=== PATIENT | male | born 1985 | race African-American/Black ===

== ENCOUNTER 2017-07-29 02:04 | Inpatient (IN) | payer MEDICAID ==
[~2017-07-29] VITALS: Ht 175.3 cm; Wt 113.9 kg
[~2017-07-29 02:04] MED LIST: DIVA500T35 PO; RISP3 PO
[2017-07-29 02:41] LABS: BASOPHILS % (AUTO) 0.1 % (0.0-2.0); EOSINOPHILS % (AUTO) 2.8 % (1.0-6.0); HEMATOCRIT 40.1 % (41-53); HEMOGLOBIN 13.5 g/dL (13.5-17.5); LYMPHOCYTES # (AUTO) 1.9 K/uL (1.0-4.8); LYMPHOCYTES % (AUTO) 16.6 % (22.0-44.0); MEAN CORPUSCULAR HEMOGLOBIN 28.6 pg (26.0-34.0); MEAN CORPUSCULAR HGB CONC 33.6 G/dL (31.0-37.0); MEAN CORPUSCULAR VOLUME 85 fL (80-100); MONOCYTES # (AUTO) 0.9 K/uL (0.1-1.0); MONOCYTES % (AUTO) 8.1 % (2.0-9.0); NEUTROPHILS # (AUTO) 8.3 K/uL (1.8-7.7); NEUTROPHILS % (AUTO) 72.4 % (40.0-70.0); PLATELET COUNT (AUTO) 228 K/uL (150-450); RED BLOOD CELL COUNT(AUTO) 4.71 MIL/uL (4.50-5.90); RED CELL DISTRIBUTION WIDTH 14.5 % (11.5-14.5); WHITE BLOOD COUNT (AUTO) 11.4 K/uL (4.5-11.0)
[2017-07-29 02:47] LABS: ANION GAP 8 mmol/L (8-16); CALCIUM, TOTAL 8.9 mg/dL (8.8-10.5); CARBON DIOXIDE 27 mmol/L (22-29); CHLORIDE 104 mmol/L (98-107); CREATININE 1.06 mg/dL (0.60-1.30); GLOMERULAR FILTR. RATE CALC > 60 mL/min (>60); POTASSIUM 3.6 mmol/L (3.5-5.1); SODIUM SERUM 139 mmol/L (136-145); UREA NITROGEN, BLOOD 11 mg/dL (7-18)
[2017-07-29 02:54] LABS: ALANINE AMINOTRANSFERASE 78 U/L (12-78); ALBUMIN 3.7 g/dL (3.4-5.0); ASPARTATE AMINOTRANSFERASE 45 U/L (15-37); BILIRUBIN,TOTAL 0.3 mg/dL (0.1-1.0); TOTAL PROTEIN, SERUM 7.6 g/dL (6.4-8.2)
[2017-07-29] MEDS ORDERED: HALOPERIDOL LACTATE 5 MG/ML VIAL IM ONE (03:00)
[2017-07-29] MEDS ORDERED: LORazepam 2 MG/ML VIAL IM ONE (03:00)
[2017-07-29] MEDS ORDERED: DiphenhydrAMINE HCL 50 MG/ML VIAL IM ONE (03:00)
[2017-07-29 03:07] LABS: VALPROIC ACID < 3 mcg/mL (50-100)
[2017-07-29 08:00] LABS: APPEARANCE,URINE CLEAR (CLEAR); GLUCOSE, URINE (UA) NEGATIVE (NEGATIVE); KETONES,URINE TRACE mg/dL (NEGATIVE); LEUKOCYTE ESTERASE ,URINE NEGATIVE (NEGATIVE); OCCULT BLOOD,URINE NEGATIVE (NEGATIVE); PH,URINE 6.5 (5.0-8.0); PROTEIN,URINE NEGATIVE (NEGATIVE)
[2017-07-29 08:01] LABS: ADD UA MICROSCOPIC NO
[2017-07-29] MEDS: HALOPERIDOL 5 MG TABLET PO PRN ×2 (08:38→17:33)
[2017-07-29] MEDS: LORazepam 2 MG TABLET PO PRN ×2 (08:38→17:33)
[2017-07-29 11:49] VITALS: BP 121/61
[2017-07-29] MEDS: RisperiDONE 2 MG TABLET PO SCH (21:56)
[2017-07-30 06:45] LABS: CHOL/HDL RATIO 4.8 (4.2-7.3)
[2017-07-30] MEDS: LORazepam 2 MG TABLET PO PRN ×2 (07:32→22:29)
[2017-07-30] MEDS: HALOPERIDOL 5 MG TABLET PO PRN (07:32)
[2017-07-30] MEDS: RisperiDONE 2 MG TABLET PO SCH (08:05)
[2017-07-30] MEDS ORDERED: LORazepam 2 MG/ML VIAL IM ONE ×2 (08:20→19:15)
[2017-07-30] MEDS ORDERED: HALOPERIDOL LACTATE 5 MG/ML VIAL IM ONE ×2 (08:20→19:15)
[2017-07-30] MEDS ORDERED: DiphenhydrAMINE HCL 50 MG/ML VIAL IM ONE ×2 (08:20→19:15)
[2017-07-30] MEDS: QUEtiapine FUMARATE 200 MG TABLET PO SCH ×2 (10:57→21:12)
[2017-07-30] MEDS: VALPROIC ACID 250 MG/5 ML SYRUP UDCUP PO SCH ×2 (10:57→21:12)
[2017-07-30] MEDS: NICOTINE 21 MG/24 HOUR PATCH TD SCH (10:58)
[2017-07-30] MEDS: GuaiFENesin/D-METHORPHAN [SUGAR-FREE] 200-20MG/10 ML SYRUP UDCUP PO PRN (13:22)
[2017-07-30] MEDS: ALBUTEROL SULFATE HFA 90 MCG/PUFF 8 GM INHALER IH PRN (13:23)
[2017-07-30 20:01] VITALS: BP 137/61
[2017-07-30] MEDS: ZOLPIDEM TARTRATE 10 MG TABLET PO PRN (22:29)
[2017-07-31] MEDS: HALOPERIDOL 5 MG TABLET PO PRN ×2 (08:00→16:30)
[2017-07-31] MEDS: LORazepam 2 MG TABLET PO PRN ×2 (08:00→16:30)
[2017-07-31] MEDS: CITALOPRAM HYDROBROMIDE 20 MG TABLET PO SCH (08:06)
[2017-07-31] MEDS: NICOTINE 21 MG/24 HOUR PATCH TD SCH (08:06)
[2017-07-31] MEDS: VALPROIC ACID 250 MG/5 ML SYRUP UDCUP PO SCH ×2 (08:06→21:39)
[2017-07-31] MEDS: QUEtiapine FUMARATE 200 MG TABLET PO SCH ×2 (08:06→21:39)
[2017-07-31 08:07] VITALS: BP 128/71
[2017-07-31] MEDS: GuaiFENesin/D-METHORPHAN [SUGAR-FREE] 200-20MG/10 ML SYRUP UDCUP PO PRN (08:12)
[2017-07-31] MEDS: ALBUTEROL SULFATE HFA 90 MCG/PUFF 8 GM INHALER IH PRN (08:13)
[2017-07-31 16:45] VITALS: BP 124/89
[2017-08-01] MEDS: LORazepam 2 MG TABLET PO PRN ×2 (01:19→23:38)
[2017-08-01] MEDS: ZOLPIDEM TARTRATE 10 MG TABLET PO PRN ×2 (01:19→23:38)
[2017-08-01 02:33] VITALS: BP 127/68
[2017-08-01] MEDS: QUEtiapine FUMARATE 200 MG TABLET PO SCH ×2 (08:30→20:16)
[2017-08-01] MEDS: CITALOPRAM HYDROBROMIDE 20 MG TABLET PO SCH (08:30)
[2017-08-01] MEDS: NICOTINE 21 MG/24 HOUR PATCH TD SCH (08:30)
[2017-08-01] MEDS: VALPROIC ACID 250 MG/5 ML SYRUP UDCUP PO SCH ×2 (08:31→20:16)
[2017-08-01 09:37] VITALS: BP 122/73
[2017-08-01 16:30] VITALS: BP 128/72
[2017-08-01] MEDS ORDERED: MAGNESIUM HYDROXIDE SUSPENSION 30 ML UDCUP PO PRN (18:15)
[2017-08-01] MEDS ORDERED: BENZOCAINE/MENTHOL LOZENGE [8 LOZENGES/PACKET] MM PRN (18:15)
[2017-08-01] MEDS ORDERED: BACITRACIN 28.4 GM OINTMENT TP PRN (18:15)
[2017-08-01] MEDS ORDERED: ONDANSETRON HCL 4 MG TABLET PO PRN (18:15)
[2017-08-01] MEDS ORDERED: LOPERAMIDE HCL 2 MG CAPSULE PO PRN (18:15)
[2017-08-01] MEDS ORDERED: ACETAMINOPHEN 325 MG TABLET PO PRN (18:15)
[2017-08-01] MEDS ORDERED: IBUPROFEN 600 MG TABLET PO PRN (18:15)
[2017-08-01] MEDS ORDERED: CloNIDine HCL 0.1 MG TABLET PO PRN (18:15)
[2017-08-01] MEDS ORDERED: MAG HYDROX/AL HYDROX/SIMETH ES 30 ML SUSPENSION UDCUP PO PRN (18:15)
[2017-08-01] MEDS ORDERED: PETROLATUM,WHITE 71 GM JELLY TP PRN (18:15)
[2017-08-02 02:11] VITALS: BP 133/85
[2017-08-02 08:29] VITALS: BP 145/93
[2017-08-02] MEDS: CITALOPRAM HYDROBROMIDE 20 MG TABLET PO SCH (08:45)
[2017-08-02] MEDS: OMEPRAZOLE 20 MG CAPSULE PO SCH (08:45)
[2017-08-02] MEDS: VALPROIC ACID 250 MG/5 ML SYRUP UDCUP PO SCH ×2 (08:45→21:20)
[2017-08-02] MEDS: QUEtiapine FUMARATE 200 MG TABLET PO SCH (08:45)
[2017-08-02] MEDS: NICOTINE 21 MG/24 HOUR PATCH TD SCH (08:49)
[2017-08-02] MEDS: HALOPERIDOL 5 MG TABLET PO PRN ×2 (10:38→16:24)
[2017-08-02] MEDS: LORazepam 2 MG TABLET PO PRN ×2 (10:38→16:24)
[2017-08-02] MEDS: ZOLPIDEM TARTRATE 10 MG TABLET PO PRN (21:20)
[2017-08-02] MEDS: QUEtiapine FUMARATE 300 MG TABLET PO SCH (21:21)
[2017-08-02 22:04] VITALS: BP 135/90
[2017-08-03 06:36] LABS: HEMATOCRIT 46.5 % (41-53); HEMOGLOBIN 15.2 g/dL (13.5-17.5); MEAN CORPUSCULAR HEMOGLOBIN 28.4 pg (26.0-34.0); MEAN CORPUSCULAR HGB CONC 32.7 G/dL (31.0-37.0); MEAN CORPUSCULAR VOLUME 87 fL (80-100); PLATELET COUNT (AUTO) 261 K/uL (150-450); RED BLOOD CELL COUNT(AUTO) 5.36 MIL/uL (4.50-5.90); RED CELL DISTRIBUTION WIDTH 14.1 % (11.5-14.5); WHITE BLOOD COUNT (AUTO) 9.1 K/uL (4.5-11.0)
[2017-08-03 07:03] LABS: ANION GAP 7 mmol/L (8-16); CARBON DIOXIDE 33 mmol/L (22-29); CHLORIDE 101 mmol/L (98-107); CREATININE 0.95 mg/dL (0.60-1.30); POTASSIUM 4.3 mmol/L (3.5-5.1); SODIUM SERUM 141 mmol/L (136-145); UREA NITROGEN, BLOOD 12 mg/dL (7-18)
[2017-08-03 07:04] LABS: CALCIUM, TOTAL 9.3 mg/dL (8.8-10.5); GLOMERULAR FILTR. RATE CALC > 60 mL/min (>60); PHOSPHORUS 3.9 mg/dL (2.5-4.9)
[2017-08-03 07:57] LABS: BAND NEUTROPHILS % (MANUAL) 5 % (1-5); LYMPHOCYTES % (MANUAL) 33 % (22-44); RBC MORPHOLOGY COMMENT NORMAL RBC MORPH; TOTAL CELLS COUNTED 100
[2017-08-03 08:21] VITALS: BP 145/83
[2017-08-03] MEDS: DOCUSATE SODIUM 100 MG CAPSULE PO PRN (08:41)
[2017-08-03] MEDS: CITALOPRAM HYDROBROMIDE 20 MG TABLET PO SCH (08:41)
[2017-08-03] MEDS: QUEtiapine FUMARATE 300 MG TABLET PO SCH ×2 (08:41→21:10)
[2017-08-03] MEDS: OMEPRAZOLE 20 MG CAPSULE PO SCH (08:41)
[2017-08-03] MEDS: VALPROIC ACID 250 MG/5 ML SYRUP UDCUP PO SCH ×2 (08:42→21:10)
[2017-08-03] MEDS: NICOTINE 21 MG/24 HOUR PATCH TD SCH (09:00)
[2017-08-03] MEDS: LORazepam 2 MG TABLET PO PRN (14:30)
[2017-08-03] MEDS: HALOPERIDOL 5 MG TABLET PO PRN (14:32)
[2017-08-03 16:35] VITALS: BP 126/75
[2017-08-04] MEDS: VALPROIC ACID 250 MG/5 ML SYRUP UDCUP PO SCH ×2 (08:09→20:59)
[2017-08-04] MEDS: QUEtiapine FUMARATE 300 MG TABLET PO SCH ×2 (08:09→20:59)
[2017-08-04] MEDS: OMEPRAZOLE 20 MG CAPSULE PO SCH (08:09)
[2017-08-04] MEDS: CITALOPRAM HYDROBROMIDE 20 MG TABLET PO SCH (08:09)
[2017-08-04] MEDS: NICOTINE 21 MG/24 HOUR PATCH TD SCH (08:12)
[2017-08-04 08:20] VITALS: BP 134/62
[2017-08-04] MEDS: LORazepam 2 MG TABLET PO PRN (14:53)
[2017-08-04] MEDS: HALOPERIDOL 5 MG TABLET PO PRN (14:53)
[2017-08-04 16:52] VITALS: BP 132/83
[2017-08-04] MEDS: ZOLPIDEM TARTRATE 10 MG TABLET PO PRN (20:59)
[2017-08-05 08:17] VITALS: BP 137/89
[2017-08-05] MEDS: LORazepam 2 MG TABLET PO PRN (08:39)
[2017-08-05] MEDS: QUEtiapine FUMARATE 300 MG TABLET PO SCH ×2 (08:40→20:29)
[2017-08-05] MEDS: OMEPRAZOLE 20 MG CAPSULE PO SCH (08:40)
[2017-08-05] MEDS: VALPROIC ACID 250 MG/5 ML SYRUP UDCUP PO SCH ×2 (08:41→20:29)
[2017-08-05] MEDS: CITALOPRAM HYDROBROMIDE 20 MG TABLET PO SCH (08:41)
[2017-08-05] MEDS: NICOTINE 21 MG/24 HOUR PATCH TD SCH (08:48)
[2017-08-05 17:31] VITALS: BP 136/84
[2017-08-06 05:29] VITALS: BP 112/65
[2017-08-06] MEDS: NICOTINE 21 MG/24 HOUR PATCH TD SCH (08:16)
[2017-08-06] MEDS: OMEPRAZOLE 20 MG CAPSULE PO SCH (08:17)
[2017-08-06] MEDS: CITALOPRAM HYDROBROMIDE 20 MG TABLET PO SCH (08:17)
[2017-08-06] MEDS: QUEtiapine FUMARATE 300 MG TABLET PO SCH ×2 (08:17→20:34)
[2017-08-06] MEDS: VALPROIC ACID 250 MG/5 ML SYRUP UDCUP PO SCH ×2 (08:18→20:34)
[2017-08-06] MEDS: ALBUTEROL SULFATE HFA 90 MCG/PUFF 8 GM INHALER IH PRN (08:21)
[2017-08-06 08:38] VITALS: BP 126/86
[2017-08-06 16:42] VITALS: BP 120/68
[2017-08-07 03:14] VITALS: BP 131/65
[2017-08-07] MEDS: OMEPRAZOLE 20 MG CAPSULE PO SCH (08:23)
[2017-08-07] MEDS: LORazepam 2 MG TABLET PO PRN ×2 (08:23→16:54)
[2017-08-07] MEDS: NICOTINE 21 MG/24 HOUR PATCH TD SCH (08:23)
[2017-08-07] MEDS: CITALOPRAM HYDROBROMIDE 20 MG TABLET PO SCH (08:23)
[2017-08-07] MEDS: HALOPERIDOL 5 MG TABLET PO PRN ×2 (08:23→16:54)
[2017-08-07] MEDS: QUEtiapine FUMARATE 300 MG TABLET PO SCH ×2 (08:23→22:43)
[2017-08-07] MEDS: ALBUTEROL SULFATE HFA 90 MCG/PUFF 8 GM INHALER IH PRN (08:23)
[2017-08-07] MEDS: VALPROIC ACID 250 MG/5 ML SYRUP UDCUP PO SCH (08:24)
[2017-08-07 08:26] VITALS: BP 118/70
[2017-08-07 16:36] VITALS: BP 122/72
[2017-08-07] MEDS: DIVALPROEX SODIUM 500 MG DR TABLET PO SCH (22:43)
[2017-08-08 08:18] VITALS: BP 127/66
[2017-08-08] MEDS: CITALOPRAM HYDROBROMIDE 20 MG TABLET PO SCH (08:20)
[2017-08-08] MEDS: NICOTINE 21 MG/24 HOUR PATCH TD SCH (08:20)
[2017-08-08] MEDS: QUEtiapine FUMARATE 300 MG TABLET PO SCH ×2 (08:20→21:22)
[2017-08-08] MEDS: DIVALPROEX SODIUM 500 MG DR TABLET PO SCH ×2 (08:20→21:22)
[2017-08-08] MEDS: OMEPRAZOLE 20 MG CAPSULE PO SCH (08:20)
[2017-08-08 16:21] VITALS: BP 121/68
[2017-08-09 00:15] VITALS: BP 129/69
[2017-08-09] MEDS: HALOPERIDOL 5 MG TABLET PO PRN ×3 (00:17→17:56)
[2017-08-09] MEDS: ZOLPIDEM TARTRATE 10 MG TABLET PO PRN (00:17)
[2017-08-09] MEDS: CITALOPRAM HYDROBROMIDE 20 MG TABLET PO SCH (08:15)
[2017-08-09] MEDS: OMEPRAZOLE 20 MG CAPSULE PO SCH (08:15)
[2017-08-09] MEDS: DIVALPROEX SODIUM 500 MG DR TABLET PO SCH ×2 (08:15→20:06)
[2017-08-09] MEDS: QUEtiapine FUMARATE 300 MG TABLET PO SCH (08:15)
[2017-08-09 08:27] VITALS: BP 124/72
[2017-08-09] MEDS: NICOTINE 21 MG/24 HOUR PATCH TD SCH (09:00)
[2017-08-09] MEDS: LORazepam 2 MG TABLET PO PRN ×2 (11:00→17:56)
[2017-08-09 16:30] VITALS: BP 137/78
[2017-08-09] MEDS: QUEtiapine FUMARATE 200 MG TABLET PO SCH (20:06)
[2017-08-10] MEDS: DIVALPROEX SODIUM 500 MG DR TABLET PO SCH ×2 (09:26→20:13)
[2017-08-10] MEDS: CITALOPRAM HYDROBROMIDE 20 MG TABLET PO SCH (09:27)
[2017-08-10] MEDS: QUEtiapine FUMARATE 200 MG TABLET PO SCH ×2 (09:27→20:12)
[2017-08-10] MEDS: OMEPRAZOLE 20 MG CAPSULE PO SCH (09:27)
[2017-08-10 09:29] VITALS: BP 144/93
[2017-08-10] MEDS: NICOTINE 21 MG/24 HOUR PATCH TD SCH (09:30)
[2017-08-10 16:36] VITALS: BP 149/91
[2017-08-10] MEDS: HALOPERIDOL 5 MG TABLET PO PRN (23:54)
[2017-08-10] MEDS: ZOLPIDEM TARTRATE 10 MG TABLET PO PRN (23:54)
[2017-08-11 00:04] VITALS: BP 141/77
[2017-08-11] MEDS: LORazepam 2 MG TABLET PO PRN ×2 (02:00→16:34)
[2017-08-11 08:41] VITALS: BP 136/83
[2017-08-11] MEDS: OMEPRAZOLE 20 MG CAPSULE PO SCH (08:51)
[2017-08-11] MEDS: QUEtiapine FUMARATE 200 MG TABLET PO SCH ×2 (08:51→21:56)
[2017-08-11] MEDS: CITALOPRAM HYDROBROMIDE 20 MG TABLET PO SCH (08:51)
[2017-08-11] MEDS: DIVALPROEX SODIUM 500 MG DR TABLET PO SCH ×2 (08:51→21:55)
[2017-08-11] MEDS: NICOTINE 21 MG/24 HOUR PATCH TD SCH (08:54)
[2017-08-11] MEDS: ALBUTEROL SULFATE HFA 90 MCG/PUFF 8 GM INHALER IH PRN (08:55)
[2017-08-11 16:29] VITALS: BP 149/75
[2017-08-11 16:30] VITALS: BP_SYST 14; BP_SYST 149; BP_DIAS 75
[2017-08-11] MEDS: HALOPERIDOL 5 MG TABLET PO PRN (16:34)
[2017-08-11 17:35] VITALS: BP 129/81
[2017-08-12 05:46] VITALS: BP 132/76
[2017-08-12 08:07] VITALS: BP 143/87
[2017-08-12] MEDS: NICOTINE 21 MG/24 HOUR PATCH TD SCH (08:12)
[2017-08-12] MEDS: DOCUSATE SODIUM 100 MG CAPSULE PO PRN (08:13)
[2017-08-12] MEDS: OMEPRAZOLE 20 MG CAPSULE PO SCH (08:13)
[2017-08-12] MEDS: QUEtiapine FUMARATE 200 MG TABLET PO SCH ×2 (08:13→21:08)
[2017-08-12] MEDS: ALBUTEROL SULFATE HFA 90 MCG/PUFF 8 GM INHALER IH PRN (08:13)
[2017-08-12] MEDS: CITALOPRAM HYDROBROMIDE 20 MG TABLET PO SCH (08:14)
[2017-08-12] MEDS: DIVALPROEX SODIUM 500 MG DR TABLET PO SCH ×2 (08:14→21:08)
[2017-08-12 16:10] VITALS: BP 144/88
[2017-08-12] MEDS: LORazepam 2 MG TABLET PO PRN (18:30)
[2017-08-12] MEDS: HALOPERIDOL 5 MG TABLET PO PRN (18:30)
[2017-08-13 05:51] VITALS: BP 140/80
[2017-08-13 08:17] VITALS: BP 138/90
[2017-08-13] MEDS: OMEPRAZOLE 20 MG CAPSULE PO SCH (08:54)
[2017-08-13] MEDS: CITALOPRAM HYDROBROMIDE 20 MG TABLET PO SCH (08:54)
[2017-08-13] MEDS: QUEtiapine FUMARATE 200 MG TABLET PO SCH ×2 (08:54→20:09)
[2017-08-13] MEDS: NICOTINE 21 MG/24 HOUR PATCH TD SCH (08:54)
[2017-08-13] MEDS: DIVALPROEX SODIUM 500 MG DR TABLET PO SCH ×2 (08:54→20:09)
[2017-08-13 16:03] VITALS: BP 127/75
[2017-08-14 03:37] VITALS: BP 110/69
[2017-08-14] MEDS: CITALOPRAM HYDROBROMIDE 20 MG TABLET PO SCH (08:10)
[2017-08-14] MEDS: QUEtiapine FUMARATE 200 MG TABLET PO SCH ×2 (08:10→20:55)
[2017-08-14] MEDS: OMEPRAZOLE 20 MG CAPSULE PO SCH (08:10)
[2017-08-14] MEDS: DIVALPROEX SODIUM 500 MG DR TABLET PO SCH ×2 (08:10→20:55)
[2017-08-14] MEDS: NICOTINE 21 MG/24 HOUR PATCH TD SCH (08:11)
[2017-08-14 08:20] VITALS: BP 118/62
[2017-08-14] MEDS ORDERED: QUET200T PO (10:42)
[2017-08-14] MEDS ORDERED: CITA20TA9 PO (10:42)
[2017-08-14] MEDS ORDERED: OMEP20 PO (10:43)
[2017-08-14 16:00] VITALS: BP 110/67
[2017-08-15 01:27] VITALS: BP 116/65
[2017-08-15] MEDS: DIVALPROEX SODIUM 500 MG DR TABLET PO SCH (07:45)
[2017-08-15] MEDS: QUEtiapine FUMARATE 200 MG TABLET PO SCH (07:45)
[2017-08-15] MEDS: NICOTINE 21 MG/24 HOUR PATCH TD SCH (07:45)
[2017-08-15] MEDS: OMEPRAZOLE 20 MG CAPSULE PO SCH (07:45)
[2017-08-15] MEDS: CITALOPRAM HYDROBROMIDE 20 MG TABLET PO SCH (07:45)
[2017-08-15 08:12] VITALS: BP 141/90
== END 2017-08-15 12:00 | disposition home or self-care (01) | DRG 750 ==
LOC: EMS 02:05 → 3EC 11:07
DX: F25.0 Schizoaffective disorder, bipolar type (principal); J45.901 Unspecified asthma with (acute) exacerbation; E66.9 Obesity, unspecified; F17.210 Nicotine dependence, cigarettes, uncomplicated; R06.83 Snoring; F14.10 Cocaine abuse, uncomplicated; F19.10 Other psychoactive substance abuse, uncomplicated; F12.10 Cannabis abuse, uncomplicated; G47.00 Insomnia, unspecified; D72.829 Elevated white blood cell count, unspecified; K21.9 Gastro-esophageal reflux disease without esophagitis; Z88.8 Allergy status to other drugs, medicaments and biological substances; Z68.36 Body mass index [BMI] 36.0-36.9, adult; Z72.89 Other problems related to lifestyle; Z71.41 Alcohol abuse counseling and surveillance of alcoholic; Z71.51 Drug abuse counseling and surveillance of drug abuser; Z71.6 Tobacco abuse counseling; Z79.899 Other long term (current) drug therapy
CPT/HCPCS: 83735; 84100; 85007; 96372; 99285; G0480; J1200; J1630; J2060; J3535

== ENCOUNTER 2017-09-22 18:16 | Emergency (ER) | payer MEDICAID, OTHER ==
[~2017-09-22] VITALS: Ht 182.9 cm; Wt 117.3 kg
[~2017-09-22 18:16] MED LIST changes: +CITA20TA9 PO; +QUET200T PO; -RISP3 PO
[2017-09-22 22:11] LABS: BASOPHILS # (AUTO) 0.03 K/uL (0.00-0.20); BASOPHILS % (AUTO) 0.3 % (0.0-2.0); EOSINOPHILS # (AUTO) 0.36 K/uL (0.00-0.70); EOSINOPHILS % (AUTO) 3.41 % (1.0-6.0); HEMATOCRIT 41.5 % (41-53); HEMOGLOBIN 13.6 g/dL (13.5-17.5); LYMPHOCYTES # (AUTO) 2.1 K/uL (1.0-4.8); LYMPHOCYTES % (AUTO) 19.7 % (22.0-44.0); MEAN CORPUSCULAR HEMOGLOBIN 28.5 pg (26.0-34.0); MEAN CORPUSCULAR HGB CONC 32.7 G/dL (31.0-37.0); MEAN CORPUSCULAR VOLUME 87 fL (80-100); MONOCYTES # (AUTO) 1.2 K/uL (0.1-1.0); MONOCYTES % (AUTO) 11.1 % (2.0-9.0); NEUTROPHILS # (AUTO) 6.9 K/uL (1.8-7.7); NEUTROPHILS % (AUTO) 65.5 % (40.0-70.0); PLATELET COUNT (AUTO) 264 K/uL (150-450); RED BLOOD CELL COUNT(AUTO) 4.77 MIL/uL (4.50-5.90); WHITE BLOOD COUNT (AUTO) 10.5 K/uL (4.5-11.0)
[2017-09-22 22:15] LABS: ANION GAP 9 mmol/L (8-16); CALCIUM, TOTAL 9.1 mg/dL (8.8-10.5); CARBON DIOXIDE 27 mmol/L (22-29); CHLORIDE 102 mmol/L (98-107); CREATININE 0.87 mg/dL (0.60-1.30); GLOMERULAR FILTR. RATE CALC > 60 mL/min (>60); SODIUM SERUM 138 mmol/L (136-145); UREA NITROGEN, BLOOD 20 mg/dL (7-18)
[2017-09-22 22:22] LABS: ALANINE AMINOTRANSFERASE 77 U/L (12-78); ALBUMIN 3.7 g/dL (3.4-5.0); ASPARTATE AMINOTRANSFERASE 41 U/L (15-37); BILIRUBIN,TOTAL 0.3 mg/dL (0.1-1.0); TOTAL PROTEIN, SERUM 7.5 g/dL (6.4-8.2); VALPROIC ACID 7 mcg/mL (50-100)
[2017-09-22 23:18] VITALS: BP 146/69
[2017-09-22] MEDS ORDERED: QUEtiapine FUMARATE 100 MG TABLET PO ONE (23:30)
[2017-09-22] MEDS ORDERED: CITALOPRAM HYDROBROMIDE 20 MG TABLET PO ONE (23:30)
[2017-09-22] MEDS ORDERED: DIVALPROEX SODIUM 500 MG ER TABLET PO ONE (23:30)
== END 2017-09-22 23:37 | disposition home or self-care (01) ==
LOC: EMS 18:17
DX: F20.9 Schizophrenia, unspecified (principal); F17.210 Nicotine dependence, cigarettes, uncomplicated; Z88.8 Allergy status to other drugs, medicaments and biological substances
CPT/HCPCS: 36415; 80053; 80164; 85025; 99284; 99406; G0480

== ENCOUNTER 2017-09-23 10:40 | Emergency (ER) | payer OTHER ==
[~2017-09-23] VITALS: Ht 182.9 cm; Wt 117.3 kg
[2017-09-23 11:10] VITALS: BP 125/72
== END 2017-09-23 11:52 | disposition home or self-care (01) ==
LOC: EMS 10:44
DX: Z76.0 Encounter for issue of repeat prescription (principal); F25.9 Schizoaffective disorder, unspecified; F17.210 Nicotine dependence, cigarettes, uncomplicated; Z88.8 Allergy status to other drugs, medicaments and biological substances
CPT/HCPCS: 99283

== ENCOUNTER 2017-10-04 15:22 | Inpatient (IN) | payer MEDICAID, OTHER ==
[~2017-10-04] VITALS: Ht 182.9 cm; Wt 113.2 kg
[2017-10-04 17:28] LABS: BASOPHILS # (AUTO) 0.04 K/uL (0.00-0.20); BASOPHILS % (AUTO) 0.4 % (0.0-2.0); EOSINOPHILS # (AUTO) 0.11 K/uL (0.00-0.70); EOSINOPHILS % (AUTO) 1.22 % (1.0-6.0); HEMATOCRIT 40.5 % (41-53); HEMOGLOBIN 13.1 g/dL (13.5-17.5); LYMPHOCYTES # (AUTO) 2.2 K/uL (1.0-4.8); LYMPHOCYTES % (AUTO) 24.6 % (22.0-44.0); MEAN CORPUSCULAR HEMOGLOBIN 28.2 pg (26.0-34.0); MEAN CORPUSCULAR HGB CONC 32.4 G/dL (31.0-37.0); MEAN CORPUSCULAR VOLUME 87 fL (80-100); MONOCYTES # (AUTO) 1.1 K/uL (0.1-1.0); MONOCYTES % (AUTO) 12.4 % (2.0-9.0); NEUTROPHILS # (AUTO) 5.5 K/uL (1.8-7.7); NEUTROPHILS % (AUTO) 61.4 % (40.0-70.0); PLATELET COUNT (AUTO) 193 K/uL (150-450); RED BLOOD CELL COUNT(AUTO) 4.65 MIL/uL (4.50-5.90); RED CELL DISTRIBUTION WIDTH 15.2 % (11.5-14.5)
[2017-10-04 17:39] LABS: ANION GAP 8 mmol/L (8-16); CALCIUM, TOTAL 9.1 mg/dL (8.8-10.5); CARBON DIOXIDE 30 mmol/L (22-29); CHLORIDE 100 mmol/L (98-107); CREATININE 0.95 mg/dL (0.60-1.30); GLOMERULAR FILTR. RATE CALC > 60 mL/min (>60); GLUCOSE,RANDOM 108 mg/dL (70-110); POTASSIUM 3.8 mmol/L (3.5-5.1); SODIUM SERUM 138 mmol/L (136-145); UREA NITROGEN, BLOOD 15 mg/dL (7-18)
[2017-10-04 17:44] LABS: ALANINE AMINOTRANSFERASE 94 U/L (12-78); ALBUMIN 3.4 g/dL (3.4-5.0); ALKALINE PHOSPHATASE 64 U/L (46-116); ASPARTATE AMINOTRANSFERASE 47 U/L (15-37); BILIRUBIN,TOTAL 0.3 mg/dL (0.1-1.0); TOTAL PROTEIN, SERUM 7.7 g/dL (6.4-8.2)
[2017-10-04 17:50] LABS: PLATELET MORPHOLOGY COMMENT LARGE PLTS PRESENT
[2017-10-04] MEDS ORDERED: HALOPERIDOL 5 MG TABLET PO PRN (18:00)
[2017-10-04] MEDS: QUEtiapine FUMARATE 200 MG TABLET PO SCH (20:19)
[2017-10-04] MEDS: DIVALPROEX SODIUM 500 MG DR TABLET PO SCH (20:19)
[2017-10-04 20:37] VITALS: BP 122/89
[2017-10-04] MEDS ORDERED: PNEUMOCOCCAL VACCINE POLYVALENT 0.5 ML VIAL [PPSV23] IM ONE (20:45)
[2017-10-04] MEDS ORDERED: BACITRACIN 28.4 GM OINTMENT TP PRN (21:15)
[2017-10-05 08:37] VITALS: BP 133/89
[2017-10-05] MEDS: QUEtiapine FUMARATE 200 MG TABLET PO SCH ×2 (09:11→20:24)
[2017-10-05] MEDS: DIVALPROEX SODIUM 500 MG DR TABLET PO SCH ×2 (09:11→20:24)
[2017-10-05] MEDS ORDERED: ALBUTEROL SULFATE HFA 90 MCG/PUFF 8 GM INHALER IH PRN (09:15)
[2017-10-05] MEDS ORDERED: BENZOCAINE/MENTHOL LOZENGE [8 LOZENGES/PACKET] MM PRN (09:15)
[2017-10-05] MEDS ORDERED: LOPERAMIDE HCL 2 MG CAPSULE PO PRN (09:15)
[2017-10-05] MEDS ORDERED: IBUPROFEN 600 MG TABLET PO PRN (09:15)
[2017-10-05] MEDS ORDERED: MAG HYDROX/AL HYDROX/SIMETH ES 30 ML SUSPENSION UDCUP PO PRN (09:15)
[2017-10-05] MEDS ORDERED: MAGNESIUM HYDROXIDE SUSPENSION 30 ML UDCUP PO PRN (09:15)
[2017-10-05] MEDS ORDERED: ACETAMINOPHEN 325 MG TABLET PO PRN (09:15)
[2017-10-05] MEDS ORDERED: CloNIDine HCL 0.1 MG TABLET PO PRN (09:15)
[2017-10-05] MEDS ORDERED: PETROLATUM,WHITE 71 GM JELLY TP PRN (09:15)
[2017-10-05] MEDS ORDERED: ONDANSETRON HCL 4 MG TABLET PO PRN (09:15)
[2017-10-05 16:26] VITALS: BP 133/63
[2017-10-06 08:38] VITALS: BP 119/59
[2017-10-06] MEDS: DIVALPROEX SODIUM 500 MG DR TABLET PO SCH ×2 (08:57→20:27)
[2017-10-06] MEDS: QUEtiapine FUMARATE 200 MG TABLET PO SCH ×2 (08:58→20:26)
[2017-10-06] MEDS: HALOPERIDOL 5 MG TABLET PO SCH (20:26)
[2017-10-07 06:47] LABS: ALANINE AMINOTRANSFERASE 75 U/L (12-78); ALBUMIN 3.2 g/dL (3.4-5.0); ALKALINE PHOSPHATASE 62 U/L (46-116); ANION GAP 6 mmol/L (8-16); ASPARTATE AMINOTRANSFERASE 25 U/L (15-37); BILIRUBIN,TOTAL 0.3 mg/dL (0.1-1.0); CALCIUM, TOTAL 9.2 mg/dL (8.8-10.5); CARBON DIOXIDE 32 mmol/L (22-29); CHLORIDE 102 mmol/L (98-107); CREATININE 0.98 mg/dL (0.60-1.30); GLOMERULAR FILTR. RATE CALC > 60 mL/min (>60); GLUCOSE,RANDOM 90 mg/dL (70-110); PHOSPHORUS 5.4 mg/dL (2.5-4.9); POTASSIUM 5.1 mmol/L (3.5-5.1); SODIUM SERUM 140 mmol/L (136-145); TOTAL PROTEIN, SERUM 7.1 g/dL (6.4-8.2); UREA NITROGEN, BLOOD 16 mg/dL (7-18)
[2017-10-07 07:30] LABS: BASOPHILS # (AUTO) 0.03 K/uL (0.00-0.20); BASOPHILS % (AUTO) 0.4 % (0.0-2.0); EOSINOPHILS # (AUTO) 0.33 K/uL (0.00-0.70); EOSINOPHILS % (AUTO) 3.72 % (1.0-6.0); HEMATOCRIT 43.8 % (41-53); HEMOGLOBIN 14.2 g/dL (13.5-17.5); LYMPHOCYTES # (AUTO) 2.6 K/uL (1.0-4.8); LYMPHOCYTES % (AUTO) 29.3 % (22.0-44.0); MEAN CORPUSCULAR HGB CONC 32.3 G/dL (31.0-37.0); MEAN CORPUSCULAR VOLUME 87 fL (80-100); MONOCYTES # (AUTO) 1.2 K/uL (0.1-1.0); MONOCYTES % (AUTO) 13.3 % (2.0-9.0); NEUTROPHILS # (AUTO) 4.7 K/uL (1.8-7.7); NEUTROPHILS % (AUTO) 53.4 % (40.0-70.0); PLATELET COUNT (AUTO) 246 K/uL (150-450); RED BLOOD CELL COUNT(AUTO) 5.06 MIL/uL (4.50-5.90); RED CELL DISTRIBUTION WIDTH 14.3 % (11.5-14.5)
[2017-10-07] MEDS: QUEtiapine FUMARATE 200 MG TABLET PO SCH ×2 (08:22→20:46)
[2017-10-07] MEDS: DIVALPROEX SODIUM 500 MG DR TABLET PO SCH ×2 (08:23→20:46)
[2017-10-07 08:46] VITALS: BP 138/93
[2017-10-07 16:00] VITALS: BP 115/60
[2017-10-07] MEDS: HALOPERIDOL 5 MG TABLET PO SCH (20:46)
[2017-10-08] MEDS: LORazepam 2 MG TABLET PO PRN ×2 (01:02→11:45)
[2017-10-08] MEDS: ZOLPIDEM TARTRATE 10 MG TABLET PO PRN (01:02)
[2017-10-08] MEDS: QUEtiapine FUMARATE 200 MG TABLET PO SCH ×2 (08:12→20:15)
[2017-10-08] MEDS: DIVALPROEX SODIUM 500 MG DR TABLET PO SCH ×2 (08:12→20:16)
[2017-10-08 08:30] VITALS: BP 151/76
[2017-10-08] MEDS ORDERED: HALOPERIDOL 10 MG TABLET PO SCH (21:00)
[2017-10-09 08:00] VITALS: BP 132/94
[2017-10-09] MEDS: DIVALPROEX SODIUM 500 MG DR TABLET PO SCH ×2 (08:35→20:21)
[2017-10-09] MEDS: QUEtiapine FUMARATE 200 MG TABLET PO SCH ×2 (08:36→20:21)
[2017-10-09 16:30] VITALS: BP 136/77
[2017-10-09] MEDS: HALOPERIDOL 10 MG TABLET PO SCH (20:21)
[2017-10-10] MEDS ORDERED: DiphenhydrAMINE HCL 50 MG/ML VIAL ONE (01:24)
[2017-10-10] MEDS ORDERED: DiphenhydrAMINE HCL 50 MG/ML VIAL IM ONE (01:30)
[2017-10-10] MEDS ORDERED: HALOPERIDOL LACTATE 5 MG/ML VIAL IM ONE (01:30)
[2017-10-10] MEDS ORDERED: LORazepam 2 MG/ML VIAL IM ONE (01:30)
[2017-10-10] MEDS: QUEtiapine FUMARATE 200 MG TABLET PO SCH ×2 (09:34→20:46)
[2017-10-10] MEDS: DIVALPROEX SODIUM 500 MG DR TABLET PO SCH ×2 (09:34→20:46)
[2017-10-10 09:58] VITALS: BP 121/70
[2017-10-10] MEDS: HALOPERIDOL 10 MG TABLET PO SCH (20:46)
[2017-10-11] MEDS: DIVALPROEX SODIUM 500 MG DR TABLET PO SCH ×2 (09:00→20:21)
[2017-10-11] MEDS: QUEtiapine FUMARATE 200 MG TABLET PO SCH ×2 (09:00→20:21)
[2017-10-11 09:10] VITALS: BP 127/73
[2017-10-11] MEDS: HALOPERIDOL 10 MG TABLET PO SCH (20:21)
[2017-10-12 08:40] VITALS: BP 137/86
[2017-10-12] MEDS: DIVALPROEX SODIUM 500 MG DR TABLET PO SCH ×2 (08:43→20:54)
[2017-10-12] MEDS: QUEtiapine FUMARATE 200 MG TABLET PO SCH ×2 (08:43→20:55)
[2017-10-12 16:35] VITALS: BP 131/69
[2017-10-12] MEDS: HALOPERIDOL 10 MG TABLET PO SCH (20:54)
[2017-10-12] MEDS: LORazepam 2 MG TABLET PO PRN (20:55)
[2017-10-13 08:23] VITALS: BP 141/90
[2017-10-13] MEDS: QUEtiapine FUMARATE 200 MG TABLET PO SCH ×2 (08:52→20:39)
[2017-10-13] MEDS: DIVALPROEX SODIUM 500 MG DR TABLET PO SCH ×2 (08:52→20:39)
[2017-10-13] MEDS: HALOPERIDOL 10 MG TABLET PO SCH (20:39)
[2017-10-14] MEDS: QUEtiapine FUMARATE 200 MG TABLET PO SCH ×2 (08:05→20:07)
[2017-10-14] MEDS: DIVALPROEX SODIUM 500 MG DR TABLET PO SCH ×2 (08:05→20:07)
[2017-10-14 08:21] VITALS: BP 155/82
[2017-10-14] MEDS ORDERED: HALO10 PO (15:23)
[2017-10-14 16:48] VITALS: BP 155/95
[2017-10-14] MEDS: HALOPERIDOL 10 MG TABLET PO SCH (20:07)
[2017-10-15] MEDS: LORazepam 2 MG TABLET PO PRN (01:48)
[2017-10-15] MEDS: ZOLPIDEM TARTRATE 10 MG TABLET PO PRN (01:48)
[2017-10-15] MEDS: QUEtiapine FUMARATE 200 MG TABLET PO SCH (09:02)
[2017-10-15] MEDS: DIVALPROEX SODIUM 500 MG DR TABLET PO SCH (09:03)
[2017-10-15 10:08] VITALS: BP 135/62
== END 2017-10-15 13:30 | disposition home or self-care (01) | DRG 750 ==
LOC: EMS 15:24 → 3EC 18:35
PROVIDERS: ADMIT Psychiatry & Neurology Psychiatry; ATTEND Psychiatry & Neurology Psychiatry
DX: F25.9 Schizoaffective disorder, unspecified (principal); R45.851 Suicidal ideations; Z91.14 Patient's other noncompliance with medication regimen; F31.9 Bipolar disorder, unspecified; G47.00 Insomnia, unspecified; J45.909 Unspecified asthma, uncomplicated; K59.00 Constipation, unspecified; D64.9 Anemia, unspecified; R03.0 Elevated blood-pressure reading, without diagnosis of hypertension; S80.212A Abrasion, left knee, initial encounter; M25.562 Pain in left knee; X58.XXXA Exposure to other specified factors, initial encounter; E66.9 Obesity, unspecified; Z79.899 Other long term (current) drug therapy; Z88.8 Allergy status to other drugs, medicaments and biological substances; Z71.6 Tobacco abuse counseling; Y93.89 Activity, other specified; Y92.89 Other specified places as the place of occurrence of the external cause; Y99.8 Other external cause status
CPT/HCPCS: 83735; 84100; 99285; G0480; J1200; J1630; J2060

== ENCOUNTER 2020-03-06 22:49 | Inpatient (IN) | payer MEDICAID ==
[~2020-03-06] VITALS: Ht 185.4 cm; Wt 99.8 kg
[~2020-03-06 22:49] MED LIST changes: -CITA20TA9 PO; +DIVA-78 PO; -DIVA500T35 PO; +HALO10 PO
[2020-03-07 00:04] VITALS: BP 128/66
[2020-03-07 02:04] VITALS: BP 122/62
[2020-03-07 08:15] LABS: BASOPHILS % (AUTO) 0.8 % (0.0-2.0); EOSINOPHILS % (AUTO) 2.8 % (1.0-6.0); HEMATOCRIT 43.7 % (41-53); HEMOGLOBIN 14.4 g/dL (13.5-17.5); LYMPHOCYTES # (AUTO) 2.2 K/uL (1.0-4.8); MEAN CORPUSCULAR HEMOGLOBIN 29.5 pg (26.0-34.0); MEAN CORPUSCULAR VOLUME 89 fL (80-100); MONOCYTES # (AUTO) 0.8 K/uL (0.1-1.0); MONOCYTES % (AUTO) 10.1 % (2.0-9.0); NEUTROPHILS # (AUTO) 4.3 K/uL (1.8-7.7); NEUTROPHILS % (AUTO) 57.3 % (40.0-70.0); PLATELET COUNT (AUTO) 190 K/uL (150-450); RED BLOOD CELL COUNT(AUTO) 4.89 MIL/uL (4.50-5.90); RED CELL DISTRIBUTION WIDTH 14.1 % (11.5-14.5)
[2020-03-07] MEDS ORDERED: OMEPRAZOLE 20 MG CAPSULE PO PRN (08:15)
[2020-03-07] MEDS ORDERED: DOCUSATE SODIUM 100 MG CAPSULE PO PRN (08:15)
[2020-03-07] MEDS ORDERED: ONDANSETRON HCL 4 MG TABLET PO PRN (08:15)
[2020-03-07] MEDS ORDERED: MAGNESIUM HYDROXIDE SUSPENSION 30 ML UDCUP PO PRN (08:15)
[2020-03-07] MEDS ORDERED: PETROLATUM,WHITE 28 GM JELLY TP PRN (08:15)
[2020-03-07] MEDS ORDERED: ALBUTEROL SULFATE HFA 90 MCG/PUFF 8 GM INHALER IH PRN (08:15)
[2020-03-07] MEDS ORDERED: LOPERAMIDE HCL 2 MG CAPSULE PO PRN (08:15)
[2020-03-07] MEDS ORDERED: IBUPROFEN 600 MG TABLET PO PRN (08:15)
[2020-03-07] MEDS ORDERED: BACITRACIN 28.4 GM OINTMENT TP PRN (08:15)
[2020-03-07] MEDS ORDERED: BENZOCAINE/MENTHOL LOZENGE MM PRN (08:15)
[2020-03-07] MEDS ORDERED: CloNIDine HCL 0.1 MG TABLET PO PRN (08:15)
[2020-03-07] MEDS ORDERED: MAG HYDROX/AL HYDROX/SIMETH ES 30 ML SUSPENSION UDCUP PO PRN (08:15)
[2020-03-07] MEDS ORDERED: ACETAMINOPHEN 325 MG TABLET PO PRN (08:15)
[2020-03-07 08:37] VITALS: BP 145/64
[2020-03-07 08:41] LABS: ALANINE AMINOTRANSFERASE 45 U/L (12-78); ALBUMIN 3.1 g/dL (3.4-5.0); ALKALINE PHOSPHATASE 58 U/L (46-116); ANION GAP 7 mmol/L (8-16); ASPARTATE AMINOTRANSFERASE 19 U/L (15-37); BILIRUBIN,TOTAL 0.1 mg/dL (0.1-1.0); CALCIUM, TOTAL 8.8 mg/dL (8.8-10.5); CARBON DIOXIDE 28 mmol/L (22-29); CHLORIDE 105 mmol/L (98-107); CHOL/HDL RATIO 5.8 (4.2-7.3); CHOLESTEROL 175 mg/dL (131-200); CREATININE 0.87 mg/dL (0.60-1.30); FREE T4 (FREE THYROXINE) 1.01 ng/dL (0.76-1.46); GLOMERULAR FILTR. RATE CALC > 60 mL/min (>60); GLUCOSE,RANDOM 97 mg/dL (70-110); HDL CHOLESTEROL 30 mg/dL (40-60); LDL CHOL (CALC.) 87 mg/dL (0-130); POTASSIUM 3.7 mmol/L (3.5-5.1); SODIUM SERUM 140 mmol/L (136-145); THYROID STIMULATING HORMONE 3.11 uIU/mL (0.36-3.74); TOTAL PROTEIN, SERUM 6.6 g/dL (6.4-8.2); TRIGLYCERIDES 290 mg/dL (15-150); UREA NITROGEN, BLOOD 14 mg/dL (7-18)
[2020-03-07 08:48] LABS: HEMOGLOBIN A1C 5.2 % (3.8-5.6)
[2020-03-07] MEDS: BENZTROPINE MESYLATE 1 MG TABLET PO SCH ×2 (10:48→16:09)
[2020-03-07] MEDS: DIVALPROEX SODIUM 500 MG DR TABLET PO SCH (10:48)
[2020-03-07] MEDS: OLANZapine 10 MG TABLET PO SCH ×2 (12:26→16:09)
[2020-03-07] MEDS ORDERED: HALOPERIDOL 5 MG TABLET PO PRN (12:45)
[2020-03-07] MEDS ORDERED: ZOLPIDEM TARTRATE 5 MG TABLET PO PRN (12:45)
[2020-03-07] MEDS ORDERED: LORazepam 2 MG TABLET PO PRN (12:45)
[2020-03-07 16:10] VITALS: BP 107/60
[2020-03-08 07:06] VITALS: BP 117/63
[2020-03-08 08:11] VITALS: BP 120/77
[2020-03-08] MEDS: DIVALPROEX SODIUM 500 MG DR TABLET PO SCH (08:58)
[2020-03-08] MEDS: BENZTROPINE MESYLATE 1 MG TABLET PO SCH ×2 (08:58→16:03)
[2020-03-08] MEDS: OLANZapine 10 MG TABLET PO SCH ×2 (08:58→16:03)
[2020-03-08 16:10] VITALS: BP 112/63
[2020-03-09 00:53] VITALS: BP 130/70
[2020-03-09] MEDS: OLANZapine 10 MG TABLET PO SCH ×2 (08:35→17:01)
[2020-03-09] MEDS: BENZTROPINE MESYLATE 1 MG TABLET PO SCH ×2 (08:35→17:01)
[2020-03-09] MEDS: DIVALPROEX SODIUM 500 MG DR TABLET PO SCH (08:35)
[2020-03-09 09:33] VITALS: BP 123/68
[2020-03-09 17:40] VITALS: BP 100/65
[2020-03-10 00:23] VITALS: BP 109/60
[2020-03-10] MEDS: DIVALPROEX SODIUM 500 MG DR TABLET PO SCH (08:56)
[2020-03-10] MEDS: OLANZapine 10 MG TABLET PO SCH ×2 (08:56→17:00)
[2020-03-10] MEDS: BENZTROPINE MESYLATE 1 MG TABLET PO SCH ×2 (08:57→17:01)
[2020-03-10 09:00] VITALS: BP 115/62
[2020-03-10 17:12] VITALS: BP 124/63
[2020-03-11 00:27] VITALS: BP 109/47
[2020-03-11] MEDS: BENZTROPINE MESYLATE 1 MG TABLET PO SCH ×2 (08:38→16:07)
[2020-03-11] MEDS: DIVALPROEX SODIUM 500 MG DR TABLET PO SCH (08:38)
[2020-03-11] MEDS: OLANZapine 10 MG TABLET PO SCH ×2 (08:38→16:07)
[2020-03-11 09:08] VITALS: BP 116/76
[2020-03-11 16:48] VITALS: BP 131/69
[2020-03-11] MEDS: DIVALPROEX SODIUM 500 MG ER TABLET PO SCH (20:36)
[2020-03-12 01:33] VITALS: BP 110/65
[2020-03-12 08:08] VITALS: BP 124/72
[2020-03-12] MEDS: DIVALPROEX SODIUM 500 MG ER TABLET PO SCH (08:26)
[2020-03-12] MEDS: BENZTROPINE MESYLATE 1 MG TABLET PO SCH (08:26)
[2020-03-12] MEDS: OLANZapine 10 MG TABLET PO SCH (08:26)
[2020-03-12] MEDS ORDERED: BENZ1TAB10 PO (11:29)
[2020-03-12] MEDS ORDERED: DIVA-78 PO (11:29)
[2020-03-12] MEDS ORDERED: OLAN10TA3 PO (11:29)
== END 2020-03-12 13:15 | disposition home or self-care (01) | DRG 750 ==
LOC: B2S 03-07 00:35
PROVIDERS: ADMIT Psychiatry & Neurology Psychiatry; ATTEND Psychiatry & Neurology Psychiatry
DX: F20.9 Schizophrenia, unspecified (principal); Z91.14 Patient's other noncompliance with medication regimen; E66.9 Obesity, unspecified; F12.90 Cannabis use, unspecified, uncomplicated; J45.909 Unspecified asthma, uncomplicated; Z87.891 Personal history of nicotine dependence; Z68.29 Body mass index [BMI] 29.0-29.9, adult
CPT/HCPCS: 83036; 84436; 84439; 84443; 86592

== ENCOUNTER 2020-07-05 01:09 | Emergency (ER) | payer MEDICAID ==
[~2020-07-05] VITALS: Ht 185.4 cm; Wt 100.0 kg
[~2020-07-05 01:09] MED LIST changes: +BENZ1TAB10 PO; +DIVA-112 PO; -DIVA-78 PO; -HALO10 PO; +OLAN10TA3 PO; -QUET200T PO
[2020-07-05 02:57] LABS: BASOPHILS % (AUTO) 0.5 % (0.0-2.0); EOSINOPHILS % (AUTO) 3.5 % (1.0-6.0); HEMATOCRIT 44.7 % (41-53); HEMOGLOBIN 14.8 g/dL (13.5-17.5); LYMPHOCYTES # (AUTO) 2.4 K/uL (1.0-4.8); LYMPHOCYTES % (AUTO) 23.5 % (22.0-44.0); MEAN CORPUSCULAR HEMOGLOBIN 29.5 pg (26.0-34.0); MEAN CORPUSCULAR HGB CONC 33.1 G/dL (31.0-37.0); MEAN CORPUSCULAR VOLUME 89 fL (80-100); NEUTROPHILS # (AUTO) 6.3 K/uL (1.8-7.7); NEUTROPHILS % (AUTO) 62.5 % (40.0-70.0); PLATELET COUNT (AUTO) 196 K/uL (150-450); RED BLOOD CELL COUNT(AUTO) 5.02 MIL/uL (4.50-5.90); RED CELL DISTRIBUTION WIDTH 13.1 % (11.5-14.5)
[2020-07-05 03:08] LABS: ANION GAP 4 mmol/L (8-16); CALCIUM, TOTAL 9.1 mg/dL (8.8-10.5); CARBON DIOXIDE 30 mmol/L (22-29); CHLORIDE 104 mmol/L (98-107); CREATININE 1.31 mg/dL (0.60-1.30); GLOMERULAR FILTR. RATE CALC > 60 mL/min (>60); GLUCOSE,RANDOM 112 mg/dL (70-110); POTASSIUM 3.4 mmol/L (3.5-5.1); SODIUM SERUM 138 mmol/L (136-145); UREA NITROGEN, BLOOD 8 mg/dL (7-18)
[2020-07-05 03:13] LABS: ALANINE AMINOTRANSFERASE 57 U/L (12-78); ALBUMIN 3.6 g/dL (3.4-5.0); ALKALINE PHOSPHATASE 68 U/L (46-116); ASPARTATE AMINOTRANSFERASE 18 U/L (15-37); BILIRUBIN,TOTAL 0.2 mg/dL (0.1-1.0); TOTAL PROTEIN, SERUM 7.5 g/dL (6.4-8.2)
[2020-07-05] MEDS ORDERED: POTASSIUM CHLORIDE 20 MEQ ER TABLET PO ONE (05:30)
[2020-07-05] MEDS ORDERED: LORazepam 1 MG TABLET PO ONE (05:30)
[2020-07-05 06:17] LABS: AMPHET/METH SCREEN,URINE POSITIVE (NEGATIVE); BARBITURATE SCREEN, URINE NEGATIVE (NEGATIVE); BENZODIAZEPINES SCREEN,URINE NEGATIVE (NEGATIVE); CANNABINOID SCREEN,URINE NEGATIVE (NEGATIVE); COCAINE SCREEN,URINE NEGATIVE (NEGATIVE); METHADONE SCREEN, URINE NEGATIVE (NEGATIVE); OPIATE SCREEN,URINE NEGATIVE (NEGATIVE)
[2020-07-05 06:21] LABS: PHENCYCLIDINE SCREEN,URINE NEGATIVE (NEGATIVE)
[2020-07-05 10:37] VITALS: BP 122/82
== END 2020-07-05 11:19 | disposition home or self-care (01) ==
LOC: EMS 01:09
DX: F20.9 Schizophrenia, unspecified (principal); F19.10 Other psychoactive substance abuse, uncomplicated; F17.210 Nicotine dependence, cigarettes, uncomplicated; F31.9 Bipolar disorder, unspecified; Z20.828 Contact with and (suspected) exposure to other viral communicable diseases
CPT/HCPCS: 36415; 80053; 80307; 85025; 87426; 99285; G0480

== ENCOUNTER 2020-07-21 15:37 | Emergency (ER) | payer MEDICAID ==
[~2020-07-21] VITALS: Ht 185.4 cm; Wt 98.6 kg
[2020-07-21 17:30] LABS: BASOPHILS % (AUTO) 0.5 % (0.0-2.0); HEMATOCRIT 41.5 % (41-53); HEMOGLOBIN 13.9 g/dL (13.5-17.5); LYMPHOCYTES # (AUTO) 2.2 K/uL (1.0-4.8); LYMPHOCYTES % (AUTO) 22.3 % (22.0-44.0); MEAN CORPUSCULAR HGB CONC 33.6 G/dL (31.0-37.0); MEAN CORPUSCULAR VOLUME 89 fL (80-100); MONOCYTES # (AUTO) 0.7 K/uL (0.1-1.0); MONOCYTES % (AUTO) 7.3 % (2.0-9.0); NEUTROPHILS # (AUTO) 6.5 K/uL (1.8-7.7); NEUTROPHILS % (AUTO) 66.9 % (40.0-70.0); PLATELET COUNT (AUTO) 204 K/uL (150-450); RED BLOOD CELL COUNT(AUTO) 4.65 MIL/uL (4.50-5.90)
[2020-07-21 17:53] LABS: ANION GAP 8 mmol/L (8-16); CALCIUM, TOTAL 9.8 mg/dL (8.8-10.5); CARBON DIOXIDE 29 mmol/L (22-29); CHLORIDE 103 mmol/L (98-107); CREATININE 1.04 mg/dL (0.60-1.30); GLOMERULAR FILTR. RATE CALC > 60 mL/min (>60); GLUCOSE,RANDOM 114 mg/dL (70-110); POTASSIUM 3.4 mmol/L (3.5-5.1); SODIUM SERUM 140 mmol/L (136-145); UREA NITROGEN, BLOOD 9 mg/dL (7-18)
[2020-07-21 17:59] LABS: ALANINE AMINOTRANSFERASE 44 U/L (12-78); ALBUMIN 3.6 g/dL (3.4-5.0); ALKALINE PHOSPHATASE 65 U/L (46-116); ASPARTATE AMINOTRANSFERASE 17 U/L (15-37); BILIRUBIN,TOTAL 0.2 mg/dL (0.1-1.0); TOTAL PROTEIN, SERUM 6.9 g/dL (6.4-8.2)
[2020-07-21] MEDS ORDERED: OLANZapine 5 MG TABLET PO ONE (20:45)
[2020-07-21] MEDS ORDERED: BENZTROPINE MESYLATE 1 MG TABLET PO ONE (20:45)
[2020-07-21 21:30] VITALS: BP 123/62
== END 2020-07-21 21:41 | disposition home or self-care (01) ==
LOC: EMS 15:37
DX: F20.9 Schizophrenia, unspecified (principal); F15.10 Other stimulant abuse, uncomplicated
CPT/HCPCS: 36415; 80053; 85025; 99285; G0480

== ENCOUNTER 2022-02-06 11:03 | Inpatient (IN) | payer MEDICAID ==
[~2022-02-06] VITALS: Ht 185.4 cm; Wt 98.6 kg
[~2022-02-06 11:03] MED LIST changes: -BENZ1TAB10 PO; +BENZ1TAB96 PO; -OLAN10TA3 PO; +OLAN10TA74 PO
[2022-02-06] MEDS ORDERED: LORazepam 2 MG/ML VIAL IM ONE (12:00)
[2022-02-06] MEDS ORDERED: DiphenhydrAMINE HCL 50 MG/ML VIAL IM ONE (12:00)
[2022-02-06] MEDS ORDERED: HALOPERIDOL LACTATE 5 MG/ML VIAL IM ONE (12:00)
[2022-02-06 12:30] LABS: BASOPHILS % (AUTO) 0.5 % (0.0-2.0); EOSINOPHILS % (AUTO) 1.6 % (1.0-6.0); HEMATOCRIT 40.6 % (41-53); HEMOGLOBIN 13.2 g/dL (13.5-17.5); LYMPHOCYTES # (AUTO) 1.8 K/uL (1.0-4.8); LYMPHOCYTES % (AUTO) 28.2 % (22.0-44.0); MEAN CORPUSCULAR HEMOGLOBIN 27.7 pg (26.0-34.0); MEAN CORPUSCULAR HGB CONC 32.6 G/dL (31.0-37.0); MEAN CORPUSCULAR VOLUME 85 fL (80-100); MONOCYTES # (AUTO) 0.5 K/uL (0.1-1.0); MONOCYTES % (AUTO) 8.6 % (2.0-9.0); NEUTROPHILS # (AUTO) 3.9 K/uL (1.8-7.7); NEUTROPHILS % (AUTO) 61.1 % (40.0-70.0); PLATELET COUNT (AUTO) 234 K/uL (150-450); RED BLOOD CELL COUNT(AUTO) 4.77 MIL/uL (4.50-5.90); RED CELL DISTRIBUTION WIDTH 14.3 % (11.5-14.5)
[2022-02-06 12:45] LABS: ANION GAP 6 mmol/L (8-16); CALCIUM, TOTAL 8.8 mg/dL (8.8-10.5); CARBON DIOXIDE 29 mmol/L (22-29); CHLORIDE 106 mmol/L (98-107); CREATININE 0.84 mg/dL (0.60-1.30); GLOMERULAR FILTR. RATE CALC > 60 mL/min (>60); GLUCOSE,RANDOM 122 mg/dL (70-110); SODIUM SERUM 141 mmol/L (136-145); UREA NITROGEN, BLOOD 12 mg/dL (7-18)
[2022-02-06] MEDS ORDERED: ZOLPIDEM TARTRATE 10 MG TABLET PO PRN (12:45)
[2022-02-06 12:59] LABS: ALANINE AMINOTRANSFERASE 55 U/L (12-78); ALBUMIN 3.3 g/dL (3.4-5.0); ALKALINE PHOSPHATASE 74 U/L (46-116); ASPARTATE AMINOTRANSFERASE 32 U/L (15-37); BILIRUBIN,TOTAL 0.2 mg/dL (0.1-1.0); THYROID STIMULATING HORMONE 1.46 uIU/mL (0.36-3.74); TOTAL PROTEIN, SERUM 6.7 g/dL (6.4-8.2); VALPROIC ACID < 3 mcg/mL (50-100)
[2022-02-06 14:40] LABS: COVID AG,FIA SOURCE NASOPHARYNGEAL
[2022-02-06 18:05] LABS: APPEARANCE,URINE CLEAR (CLEAR); BILIRUBIN,URINE NEGATIVE (NEGATIVE); GLUCOSE, URINE (UA) NEGATIVE (NEGATIVE); KETONES,URINE NEGATIVE (NEGATIVE); LEUKOCYTE ESTERASE ,URINE NEGATIVE (NEGATIVE); NITRATE,URINE NEGATIVE (NEGATIVE); OCCULT BLOOD,URINE NEGATIVE (NEGATIVE); PH,URINE 6.5 (5.0-8.0); PROTEIN,URINE NEGATIVE (NEGATIVE); SPECIFIC GRAVITIY, URINE 1.015 (1.003-1.030); UROBILINOGEN,URINE <=1.0 mg/dL (<=1.0)
[2022-02-06 18:06] LABS: AMPHET/METH SCREEN,URINE POSITIVE (NEGATIVE); BARBITURATE SCREEN, URINE NEGATIVE (NEGATIVE); BENZODIAZEPINES SCREEN,URINE NEGATIVE (NEGATIVE); CANNABINOID SCREEN,URINE NEGATIVE (NEGATIVE); COCAINE SCREEN,URINE NEGATIVE (NEGATIVE); METHADONE SCREEN, URINE NEGATIVE (NEGATIVE); OPIATE SCREEN,URINE NEGATIVE (NEGATIVE)
[2022-02-06 18:10] LABS: PHENCYCLIDINE SCREEN,URINE NEGATIVE (NEGATIVE)
[2022-02-06 21:44] VITALS: BP 108/74
[2022-02-07 04:52] VITALS: BP 105/57
[2022-02-07] MEDS ORDERED: LOPERAMIDE HCL 2 MG CAPSULE PO PRN (08:00)
[2022-02-07] MEDS ORDERED: IBUPROFEN 600 MG TABLET PO PRN (08:00)
[2022-02-07] MEDS ORDERED: OMEPRAZOLE 20 MG CAPSULE PO PRN (08:00)
[2022-02-07] MEDS ORDERED: ACETAMINOPHEN 325 MG TABLET PO PRN (08:00)
[2022-02-07] MEDS ORDERED: BENZOCAINE/MENTHOL LOZENGE PO PRN (08:00)
[2022-02-07] MEDS ORDERED: MAG HYDROX/AL HYDROX/SIMETH ES 30 ML SUSPENSION UDCUP PO PRN (08:00)
[2022-02-07] MEDS ORDERED: CloNIDine HCL 0.1 MG TABLET PO PRN (08:00)
[2022-02-07] MEDS ORDERED: DOCUSATE SODIUM 100 MG CAPSULE PO PRN (08:00)
[2022-02-07] MEDS ORDERED: ONDANSETRON HCL 4 MG TABLET PO PRN (08:00)
[2022-02-07] MEDS ORDERED: ALBUTEROL SULFATE HFA 90 MCG/PUFF 8 GM INHALER IH PRN (08:00)
[2022-02-07] MEDS ORDERED: BACITRACIN 28 GM OINTMENT TP PRN (08:00)
[2022-02-07] MEDS ORDERED: MAGNESIUM HYDROXIDE SUSPENSION 30 ML UDCUP PO PRN (08:00)
[2022-02-07] MEDS ORDERED: PETROLATUM,WHITE 28 GM JELLY TP PRN (08:00)
[2022-02-07 08:14] VITALS: BP 106/56
[2022-02-07] MEDS: LORazepam 2 MG TABLET PO PRN ×2 (12:25→17:15)
[2022-02-07] MEDS: HALOPERIDOL 5 MG TABLET PO PRN ×2 (12:25→17:15)
[2022-02-07 16:06] VITALS: BP 127/68
[2022-02-07] MEDS: RisperiDONE 1 MG TABLET PO SCH (17:15)
[2022-02-07] MEDS: DIVALPROEX SODIUM 500 MG DR TABLET PO SCH (20:38)
[2022-02-08 04:35] VITALS: BP 113/61
[2022-02-08 08:18] VITALS: BP 122/70
[2022-02-08] MEDS: DIVALPROEX SODIUM 500 MG DR TABLET PO SCH ×2 (08:26→20:00)
[2022-02-08] MEDS: LORazepam 2 MG TABLET PO PRN ×2 (08:26→19:59)
[2022-02-08] MEDS: RisperiDONE 1 MG TABLET PO SCH ×2 (08:26→16:28)
[2022-02-08] MEDS: HALOPERIDOL 5 MG TABLET PO PRN ×2 (08:26→19:59)
[2022-02-08 16:28] VITALS: BP 130/68
[2022-02-09 05:43] VITALS: BP 103/65
[2022-02-09] MEDS: RisperiDONE 1 MG TABLET PO SCH ×2 (08:47→17:01)
[2022-02-09] MEDS: DIVALPROEX SODIUM 500 MG DR TABLET PO SCH ×2 (08:47→21:11)
[2022-02-09 16:12] VITALS: BP 130/72
[2022-02-09] MEDS: HALOPERIDOL 5 MG TABLET PO PRN (17:01)
[2022-02-09] MEDS: LORazepam 2 MG TABLET PO PRN (17:01)
[2022-02-09] MEDS ORDERED: PALIPERIDONE PALMITATE 234 MG/1.5 ML SYRINGE IM ONE (19:00)
[2022-02-10 08:08] VITALS: BP 135/75
[2022-02-10] MEDS: RisperiDONE 1 MG TABLET PO SCH (09:12)
[2022-02-10] MEDS: LORazepam 2 MG TABLET PO PRN (09:12)
[2022-02-10] MEDS: DIVALPROEX SODIUM 500 MG DR TABLET PO SCH (09:12)
[2022-02-10] MEDS: HALOPERIDOL 5 MG TABLET PO PRN (09:12)
== END 2022-02-10 14:00 | disposition home or self-care (01) | DRG 750 ==
LOC: EMS 11:03 → B3A 19:51
PROVIDERS: ADMIT Psychiatry & Neurology Psychiatry; ATTEND Psychiatry & Neurology Psychiatry
DX: F20.9 Schizophrenia, unspecified (principal); Z59.02 Unsheltered homelessness; F10.10 Alcohol abuse, uncomplicated; F31.9 Bipolar disorder, unspecified; J45.909 Unspecified asthma, uncomplicated; F17.210 Nicotine dependence, cigarettes, uncomplicated; G47.00 Insomnia, unspecified; K59.00 Constipation, unspecified; F41.9 Anxiety disorder, unspecified; F12.10 Cannabis abuse, uncomplicated; F15.10 Other stimulant abuse, uncomplicated; Y90.9 Presence of alcohol in blood, level not specified; Z20.822 Contact with and (suspected) exposure to COVID-19; Z71.51 Drug abuse counseling and surveillance of drug abuser
CPT/HCPCS: 80053; 80164; 81003; 84443; 85025; 99285; G0480; J1200; J1630; J2060

== ENCOUNTER 2022-06-07 11:14 | Inpatient (IN) | payer MEDICAID ==
[~2022-06-07] VITALS: Ht 177.8 cm; Wt 110.8 kg
[2022-06-07 12:23] LABS: BASOPHILS % (AUTO) 0.5 % (0.0-2.0); HEMATOCRIT 38.7 % (41-53); HEMOGLOBIN 13.1 g/dL (13.5-17.5); LYMPHOCYTES # (AUTO) 2.3 K/uL (1.0-4.8); LYMPHOCYTES % (AUTO) 24.7 % (22.0-44.0); MEAN CORPUSCULAR HEMOGLOBIN 28.4 pg (26.0-34.0); MEAN CORPUSCULAR HGB CONC 33.7 G/dL (31.0-37.0); MEAN CORPUSCULAR VOLUME 84 fL (80-100); MONOCYTES # (AUTO) 0.9 K/uL (0.1-1.0); MONOCYTES % (AUTO) 9.5 % (2.0-9.0); NEUTROPHILS # (AUTO) 5.9 K/uL (1.8-7.7); NEUTROPHILS % (AUTO) 64.3 % (40.0-70.0); PLATELET COUNT (AUTO) 224 K/uL (150-450); RED BLOOD CELL COUNT(AUTO) 4.61 MIL/uL (4.50-5.90); RED CELL DISTRIBUTION WIDTH 15.4 % (11.5-14.5)
[2022-06-07] MEDS ORDERED: OLANZapine 5 MG TABLET PO ONE (12:30)
[2022-06-07 12:38] LABS: ANION GAP 7 mmol/L (8-16); CALCIUM, TOTAL 8.7 mg/dL (8.8-10.5); CARBON DIOXIDE 27 mmol/L (22-29); CHLORIDE 102 mmol/L (98-107); CREATININE 0.78 mg/dL (0.60-1.30); GLOMERULAR FILTR. RATE CALC > 60 mL/min (>60); GLUCOSE,RANDOM 88 mg/dL (70-110); POTASSIUM 3.9 mmol/L (3.5-5.1); SODIUM SERUM 136 mmol/L (136-145); UREA NITROGEN, BLOOD 8 mg/dL (7-18)
[2022-06-07 12:43] LABS: COVID AG,FIA SOURCE NASOPHARYNGEAL
[2022-06-07 12:44] LABS: ALANINE AMINOTRANSFERASE 82 U/L (12-78); ALBUMIN 3.7 g/dL (3.4-5.0); ALKALINE PHOSPHATASE 76 U/L (46-116); ASPARTATE AMINOTRANSFERASE 44 U/L (15-37); BILIRUBIN,TOTAL 0.6 mg/dL (0.1-1.0); TOTAL PROTEIN, SERUM 7.1 g/dL (6.4-8.2)
[2022-06-07] MEDS ORDERED: ZOLPIDEM TARTRATE 10 MG TABLET PO PRN (12:45)
[2022-06-07 12:52] LABS: AMPHET/METH SCREEN,URINE POSITIVE (NEGATIVE); APPEARANCE,URINE CLEAR (CLEAR); BARBITURATE SCREEN, URINE NEGATIVE (NEGATIVE); BENZODIAZEPINES SCREEN,URINE NEGATIVE (NEGATIVE); BILIRUBIN,URINE NEGATIVE (NEGATIVE); CANNABINOID SCREEN,URINE NEGATIVE (NEGATIVE); COCAINE SCREEN,URINE NEGATIVE (NEGATIVE); GLUCOSE, URINE (UA) NEGATIVE (NEGATIVE); KETONES,URINE NEGATIVE (NEGATIVE); LEUKOCYTE ESTERASE ,URINE NEGATIVE (NEGATIVE); METHADONE SCREEN, URINE NEGATIVE (NEGATIVE); NITRATE,URINE NEGATIVE (NEGATIVE); OCCULT BLOOD,URINE NEGATIVE (NEGATIVE); OPIATE SCREEN,URINE NEGATIVE (NEGATIVE); PROTEIN,URINE NEGATIVE (NEGATIVE); SPECIFIC GRAVITIY, URINE 1.016 (1.003-1.030); UROBILINOGEN,URINE <=1.0 mg/dL (<=1.0)
[2022-06-07 12:53] LABS: PHENCYCLIDINE SCREEN,URINE NEGATIVE (NEGATIVE)
[2022-06-07] MEDS ORDERED: LORazepam 2 MG/ML VIAL IM ONE (15:30)
[2022-06-07] MEDS ORDERED: HALOPERIDOL LACTATE 5 MG/ML VIAL IM ONE (15:30)
[2022-06-07] MEDS ORDERED: DiphenhydrAMINE HCL 50 MG/ML VIAL IM ONE (15:30)
[2022-06-07] MEDS ORDERED: DiphenhydrAMINE HCL 50 MG/ML VIAL ONE ×2 (15:31→15:33)
[2022-06-07] MEDS ORDERED: HALOPERIDOL LACTATE 5 MG/ML VIAL ONE ×2 (15:31→15:33)
[2022-06-07] MEDS ORDERED: LORazepam 2 MG/ML VIAL ONE (15:32)
[2022-06-08] MEDS ORDERED: PNEUMOCOCCAL VACCINE POLYVALENT 0.5 ML VIAL [PPSV23] IM. ONE (03:00)
[2022-06-08] MEDS ORDERED: PETROLATUM,WHITE 28 GM JELLY TP PRN (07:15)
[2022-06-08] MEDS ORDERED: LOPERAMIDE HCL 2 MG CAPSULE PO PRN (07:15)
[2022-06-08] MEDS ORDERED: ONDANSETRON HCL 4 MG TABLET PO PRN (07:15)
[2022-06-08] MEDS ORDERED: GuaiFENesin/D-METHORPHAN [SUGAR-FREE] 200-20MG/10 ML SYRUP UDCUP PO PRN (07:15)
[2022-06-08] MEDS ORDERED: IBUPROFEN 400 MG TABLET PO PRN (07:15)
[2022-06-08] MEDS ORDERED: ACETAMINOPHEN 325 MG TABLET PO PRN (07:15)
[2022-06-08] MEDS ORDERED: DOCUSATE SODIUM 100 MG CAPSULE PO PRN (07:15)
[2022-06-08] MEDS ORDERED: MAG HYDROX/AL HYDROX/SIMETH ES 30 ML SUSPENSION UDCUP PO PRN (07:15)
[2022-06-08] MEDS ORDERED: NICOTINE 14 MG/24 HOUR PATCH TD PRN (07:15)
[2022-06-08] MEDS ORDERED: ALBUTEROL SULFATE HFA 90 MCG/PUFF 8 GM INHALER IH PRN (07:15)
[2022-06-08] MEDS ORDERED: MAGNESIUM HYDROXIDE SUSPENSION 30 ML UDCUP PO PRN (07:15)
[2022-06-08] MEDS ORDERED: CloNIDine HCL 0.1 MG TABLET PO PRN (07:15)
[2022-06-08 08:23] VITALS: BP 115/56
[2022-06-08] MEDS: DIVALPROEX SODIUM 500 MG DR TABLET PO SCH ×2 (11:55→16:59)
[2022-06-08] MEDS: OLANZapine 10 MG TABLET PO SCH ×2 (11:55→16:58)
[2022-06-08] MEDS: LORazepam 2 MG TABLET PO PRN (16:59)
[2022-06-08 20:41] VITALS: BP 109/61
[2022-06-09] MEDS: DIVALPROEX SODIUM 500 MG DR TABLET PO SCH ×2 (08:25→17:01)
[2022-06-09] MEDS: OLANZapine 10 MG TABLET PO SCH ×2 (08:26→16:59)
[2022-06-09] MEDS: LORazepam 2 MG TABLET PO PRN ×2 (08:26→17:01)
[2022-06-09 08:38] VITALS: BP 128/80
[2022-06-09 20:50] VITALS: BP 107/61
[2022-06-10 07:34] LABS: CHOL/HDL RATIO 4.6 (4.2-7.3); FREE T4 (FREE THYROXINE) 1.11 ng/dL (0.76-1.46); THYROID STIMULATING HORMONE 0.46 uIU/mL (0.36-3.74)
[2022-06-10 08:27] VITALS: BP 127/66
[2022-06-10] MEDS: OLANZapine 10 MG TABLET PO SCH ×2 (08:49→17:00)
[2022-06-10] MEDS: LORazepam 2 MG TABLET PO PRN (08:49)
[2022-06-10] MEDS: DIVALPROEX SODIUM 500 MG DR TABLET PO SCH ×2 (08:49→17:00)
[2022-06-11] MEDS: DIVALPROEX SODIUM 500 MG DR TABLET PO SCH ×2 (08:32→17:20)
[2022-06-11] MEDS: HALOPERIDOL 5 MG TABLET PO PRN (08:32)
[2022-06-11] MEDS: LORazepam 2 MG TABLET PO PRN (08:32)
[2022-06-11] MEDS: OLANZapine 10 MG TABLET PO SCH ×2 (08:32→17:20)
[2022-06-11 09:01] VITALS: BP 146/83
[2022-06-11 16:06] VITALS: BP 130/65
[2022-06-12 08:29] VITALS: BP 107/53
[2022-06-12] MEDS: OLANZapine 10 MG TABLET PO SCH ×2 (08:42→16:53)
[2022-06-12] MEDS: DIVALPROEX SODIUM 500 MG DR TABLET PO SCH ×2 (08:42→16:53)
[2022-06-12] MEDS: LORazepam 2 MG TABLET PO PRN (08:51)
[2022-06-12 16:26] VITALS: BP 123/67
[2022-06-13 08:08] VITALS: BP 95/48
[2022-06-13] MEDS: OLANZapine 10 MG TABLET PO SCH ×2 (08:19→16:34)
[2022-06-13] MEDS: DIVALPROEX SODIUM 500 MG DR TABLET PO SCH ×2 (08:19→16:33)
[2022-06-13] MEDS: LORazepam 2 MG TABLET PO PRN (16:30)
[2022-06-13] MEDS: HALOPERIDOL 5 MG TABLET PO PRN (16:30)
[2022-06-13 16:47] LABS: COVID AG,FIA SOURCE NASOPHARYNGEAL
[2022-06-13 16:55] VITALS: BP 130/71
[2022-06-14 08:10] VITALS: BP 102/46
[2022-06-14] MEDS: OLANZapine 10 MG TABLET PO SCH ×2 (08:57→16:22)
[2022-06-14] MEDS: DIVALPROEX SODIUM 500 MG DR TABLET PO SCH ×2 (08:57→16:22)
[2022-06-14] MEDS: LORazepam 2 MG TABLET PO PRN ×2 (11:00→16:22)
[2022-06-14] MEDS: HALOPERIDOL 5 MG TABLET PO PRN (11:00)
[2022-06-14 16:10] VITALS: BP 104/60
[2022-06-15 08:17] VITALS: BP 124/48
[2022-06-15] MEDS: LORazepam 2 MG TABLET PO PRN ×2 (09:44→16:57)
[2022-06-15] MEDS: OLANZapine 10 MG TABLET PO SCH ×2 (09:44→16:57)
[2022-06-15] MEDS: HALOPERIDOL 5 MG TABLET PO PRN (09:44)
[2022-06-15] MEDS: DIVALPROEX SODIUM 500 MG DR TABLET PO SCH ×2 (09:44→16:57)
[2022-06-15 16:28] VITALS: BP 131/72
[2022-06-16] MEDS: LORazepam 2 MG TABLET PO PRN ×2 (08:56→17:41)
[2022-06-16] MEDS: OLANZapine 10 MG TABLET PO SCH ×2 (08:56→17:01)
[2022-06-16] MEDS: DIVALPROEX SODIUM 500 MG DR TABLET PO SCH ×2 (08:56→17:00)
[2022-06-16 09:32] VITALS: BP 114/54
[2022-06-16 16:04] VITALS: BP 118/82
[2022-06-16] MEDS: HALOPERIDOL 5 MG TABLET PO PRN (17:41)
[2022-06-17] MEDS: LORazepam 2 MG TABLET PO PRN ×2 (07:48→16:29)
[2022-06-17] MEDS: DIVALPROEX SODIUM 500 MG DR TABLET PO SCH ×2 (07:48→16:27)
[2022-06-17] MEDS: OLANZapine 10 MG TABLET PO SCH ×2 (07:48→16:27)
[2022-06-17 08:15] VITALS: BP 117/76
[2022-06-17] MEDS: HALOPERIDOL 5 MG TABLET PO PRN (16:29)
[2022-06-18 08:18] VITALS: BP 116/63
[2022-06-18] MEDS: DIVALPROEX SODIUM 500 MG DR TABLET PO SCH ×2 (08:23→16:25)
[2022-06-18] MEDS: OLANZapine 10 MG TABLET PO SCH ×2 (08:23→16:25)
[2022-06-18] MEDS: HALOPERIDOL 5 MG TABLET PO PRN (16:25)
[2022-06-18] MEDS: LORazepam 2 MG TABLET PO PRN (16:25)
[2022-06-18 16:38] VITALS: BP 121/71
[2022-06-19 08:10] VITALS: BP 99/56
[2022-06-19] MEDS: OLANZapine 10 MG TABLET PO SCH ×2 (08:44→16:33)
[2022-06-19] MEDS: DIVALPROEX SODIUM 500 MG DR TABLET PO SCH ×2 (08:45→16:33)
[2022-06-19] MEDS: HALOPERIDOL 5 MG TABLET PO PRN ×2 (08:46→16:33)
[2022-06-19] MEDS: LORazepam 2 MG TABLET PO PRN ×2 (08:46→16:33)
[2022-06-19 16:12] VITALS: BP 113/68
[2022-06-20 06:54] LABS: COVID AG,FIA SOURCE NASAL SWAB
[2022-06-20] MEDS: LORazepam 2 MG TABLET PO PRN ×3 (08:12→15:57)
[2022-06-20] MEDS: DIVALPROEX SODIUM 500 MG DR TABLET PO SCH ×2 (08:12→15:59)
[2022-06-20] MEDS: OLANZapine 10 MG TABLET PO SCH ×2 (08:12→15:57)
[2022-06-20 08:23] VITALS: BP 118/62
[2022-06-20] MEDS: HALOPERIDOL 5 MG TABLET PO PRN (11:12)
[2022-06-20 16:02] VITALS: BP 132/83
[2022-06-21] MEDS: OLANZapine 10 MG TABLET PO SCH (08:31)
[2022-06-21] MEDS: HALOPERIDOL 5 MG TABLET PO PRN (08:31)
[2022-06-21] MEDS: LORazepam 2 MG TABLET PO PRN (08:31)
[2022-06-21] MEDS: DIVALPROEX SODIUM 500 MG DR TABLET PO SCH (08:31)
[2022-06-21 08:38] VITALS: BP 96/60
[2022-06-21] MEDS ORDERED: DIVA-112 PO (14:28)
[2022-06-21] MEDS ORDERED: OLAN10 PO (14:28)
== END 2022-06-21 14:10 | disposition home or self-care (01) | DRG 750 ==
LOC: EMS 11:14 → B2S 13:26 → B3A 17:19 → 3EC 06-10 16:00
PROVIDERS: ADMIT Psychiatry & Neurology Child & Adolescent Psychiatry; ATTEND Psychiatry & Neurology Child & Adolescent Psychiatry
DX: F20.0 Paranoid schizophrenia (principal); R45.850 Homicidal ideations; D64.9 Anemia, unspecified; Z20.822 Contact with and (suspected) exposure to COVID-19; F17.200 Nicotine dependence, unspecified, uncomplicated; F19.10 Other psychoactive substance abuse, uncomplicated; F31.9 Bipolar disorder, unspecified; J44.9 Chronic obstructive pulmonary disease, unspecified; Z71.6 Tobacco abuse counseling; Z59.00 Homelessness unspecified
CPT/HCPCS: 80053; 80061; 81003; 84439; 84443; 85025; 87081; 99285; G0480; J1200; J1630; J2060